=== PATIENT | female | born 1940 | race Caucasian/White ===

== ENCOUNTER 2023-02-06 08:11 | Emergency (ER) | payer OTHER, MEDICARE ==
[2023-02-06 08:40] VITALS: RESP 18; TEMP 98.7; BMI 25.6
[2023-02-06 09:30] LABS: INR 1.22 (0.83-1.09); PROTHROMBIN TIME (PATIENT) 14.1 SEC (9.7-13.0)
[2023-02-06 09:31] VITALS: BP 188/92; PULSE 80
[2023-02-06 09:33] LABS: ACTIVATED PTT 35.4 SECONDS (25.2-36.5)
[2023-02-06 09:37] LABS: HEMATOCRIT 48.3 % (32.4-45.2); HEMOGLOBIN 16.4 G/dL (10.7-15.3); MCH 30.8 pg (25.7-33.7); MEAN CELL VOLUME 90.6 fl (80-96); MEAN PLT VOLUME 8.6 fl (7.5-11.1); PLATELET COUNT 185.3 10^3/uL (134-434); RBC 5.33 10^6/uL (3.60-5.2); RDW 13.6 % (11.6-15.6); WHITE BLOOD COUNT 6.8 10^3/uL (4.0-10.8)
[2023-02-06 10:23] LABS: ALBUMIN 4.7 g/dl (3.4-5.0); BLOOD UREA NITROGEN 15.9 mg/dl (7-18); CALCIUM 9.8 mg/dl (8.5-10.1); CREATININE 0.8 mg/dl (0.6-1.3); POTASSIUM 3.7 mmol/L (3.5-5.1); SGOT/AST 24.4 U/L (15-37); SGPT/ALT 20.7 U/L (7-52); TOT PROT 7.3 g/dl (6.4-8.2)
[2023-02-06 11:13] LABS: PLATELET ESTIMATE ADEQUATE
[2023-02-06 11:55] LABS: BILIRUBIN,TOTAL 0.9 mg/dL (0.2-1)
== END 2023-02-06 11:31 | disposition home or self-care (01) ==
LOC: FER 08:11
DX: R20.0 Anesthesia of skin (principal); R20.2 Paresthesia of skin; I63.9 Cerebral infarction, unspecified
CPT/HCPCS: 36415; 70450-TC; 80053; 85027; 85610; 85730; 93005; 99285-25

== ENCOUNTER 2023-02-09 12:10 | Observation (INO) | payer OTHER, MEDICARE ==
[2023-02-09] MEDS ORDERED: ASPIRIN 81 MG CHEWABLE TABLETS PO ONE (12:44)
[2023-02-09] MEDS ORDERED: ATORVASTATIN CA 80 MG TABLET (FP) PO ONE (12:46)
[2023-02-09] MEDS ORDERED: ATORVASTATIN CA 80 MG TABLET (FP) ONE (12:52)
[2023-02-09] MEDS ORDERED: ASPIRIN COATED 81 MG TABLET.EC ONE (12:52)
[2023-02-09] MEDS ORDERED: LABETALOL HCL 5 MG/1 ML (100MG/20 ML VIAL) IVPUSH ONE (13:18)
[2023-02-09] MEDS ORDERED: LABETALOL HCL 20 MG/4 ML VIAL ONE (13:22)
[2023-02-09 13:33] LABS: BASO % 0.6 % (0-2.0); HEMATOCRIT 49.4 % (32.4-45.2); HEMOGLOBIN 16.7 GM/dL (10.7-15.3); LYMPH % 24.3 % (8-40); MCH 29.9 pg (25.7-33.7); MCHC 33.8 g/dl (32.0-36.0); MEAN CELL VOLUME 88.4 fl (80-96); MEAN PLT VOLUME 8.2 fl (7.5-11.1); MONO % 9.2 % (3.8-10.2); NEUT % 64.9 % (42.8-82.8); PLATELET COUNT 213 10^3/uL (134-434); RBC 5.59 M/mm3 (3.60-5.2); RDW 13.1 % (11.6-15.6)
[2023-02-09 13:35] LABS: INR 1.51 (0.83-1.09); PROTHROMBIN TIME (PATIENT) 17.4 SEC (9.7-13.0)
[2023-02-09 14:21] LABS: POTASSIUM 3.7 mmol/L (3.5-5.1)
[2023-02-09 14:22] LABS: BLOOD UREA NITROGEN 18.4 mg/dL (7-18); CALCIUM 9.8 mg/dL (8.5-10.1)
[2023-02-09 14:23] LABS: ALBUMIN 4.4 g/dl (3.4-5.0)
[2023-02-09 14:27] LABS: BILIRUBIN,TOTAL 1.1 mg/dL (0.2-1); CREATININE 0.8 mg/dL (0.55-1.3)
[2023-02-09 14:28] LABS: TOT PROT 7.3 g/dl (6.4-8.2)
[2023-02-09 16:14] LABS: BASO % 0.8 % (0-2.0); HEMATOCRIT 44.8 % (32.4-45.2); HEMOGLOBIN 15.3 GM/dL (10.7-15.3); MCH 30.2 pg (25.7-33.7); MCHC 34.1 g/dl (32.0-36.0); MEAN CELL VOLUME 88.4 fl (80-96); MEAN PLT VOLUME 8.4 fl (7.5-11.1); MONO % 7.7 % (3.8-10.2); NEUT % 70.5 % (42.8-82.8); PLATELET COUNT 212 10^3/uL (134-434); RBC 5.07 M/mm3 (3.60-5.2); RDW 12.8 % (11.6-15.6); WHITE BLOOD COUNT 9.1 K/mm3 (4.0-10.0)
[2023-02-09 16:39] LABS: CHOLESTEROL 224 mg/dL (50-200)
[2023-02-09 16:40] LABS: LDL CHOLESTEROL (ONLY SJRH) 149 mg/dL (5-100)
[2023-02-09 16:42] LABS: HDL CHOLESTEROL 45 mg/dL (40-60)
[2023-02-09 17:27] VITALS: BMI 25.4
[2023-02-09] MEDS: APIXABAN 5 MG TABLET PO SCH (21:17)
[2023-02-10] MEDS: APIXABAN 5 MG TABLET PO SCH (09:06)
[2023-02-10 09:07] LABS: POTASSIUM 3.7 mmol/L (3.5-5.1)
[2023-02-10 09:36] VITALS: PULSE 96; RESP 18
[2023-02-10 09:37] LABS: BILIRUBIN,TOTAL 1.2 mg/dL (0.2-1); CALCIUM 9.3 mg/dL (8.5-10.1)
[2023-02-10 09:38] LABS: BLOOD UREA NITROGEN 14.1 mg/dL (7-18)
[2023-02-10 09:39] LABS: CREATININE 0.8 mg/dL (0.55-1.3)
[2023-02-10 09:44] LABS: PHOSPHOROUS 3.3 mg/dL (2.5-4.9)
[2023-02-10] MEDS ORDERED: LOSARTAN POTASSIUM 25 MG TABLET PO SCH (10:00)
[2023-02-10] MEDS ORDERED: ASPIRIN 81 MG CHEWABLE TABLETS PO SCH (10:00)
[2023-02-10] MEDS ORDERED: ATORVASTATIN CA 80 MG TABLET (FP) PO SCH (10:00)
[2023-02-10 14:03] VITALS: BP 160/80; TEMP 98
== END 2023-02-10 18:48 | disposition home or self-care (01) ==
LOC: JER 12:10 → JERBED 15:28 → J4S 17:03
PROVIDERS: ADMIT Internal Medicine
PROC: 3E033GC Introduction of Other Therapeutic Substance into Peripheral Vein, Percutaneous Approach (ICD-10-PCS; principal; 2023-02-09)
DX: I63.9 Cerebral infarction, unspecified (principal); I16.0 Hypertensive urgency; I48.91 Unspecified atrial fibrillation; I10 Essential (primary) hypertension; Z87.891 Personal history of nicotine dependence; Z79.01 Long term (current) use of anticoagulants
CPT/HCPCS: 36415; 80053; 80061; 83036; 83735; 84100; 84443; 85025; 85610; 87635; 93005; 93010; 93306-TC; 93880-TC; 96374; 97161-GP; 99291; G0378